=== PATIENT | male | born 1975 | race Caucasian/White ===

== ENCOUNTER 2019-03-11 18:58 | Emergency (ER) | payer SELFPAY ==
[~2019-03-11] VITALS: Ht 154.9 cm; Wt 60.0 kg
[2019-03-11] MEDS ORDERED: AMOX TR/POT CLAV 875 MG/125 MG TABLET PO ONE (21:45)
[2019-03-11] MEDS ORDERED: MAALOX/LIDOCAINE/NYSTATIN SUSP 5 ML ORAL.SYG PO ONE (21:45)
[2019-03-11 21:51] VITALS: BP 119/76
== END 2019-03-11 22:09 | disposition home or self-care (01) ==
LOC: EMS 18:59
DX: A69.0 Necrotizing ulcerative stomatitis (principal); F17.210 Nicotine dependence, cigarettes, uncomplicated

== ENCOUNTER 2022-06-09 00:23 | Inpatient (IN) | payer OTHER ==
[~2022-06-09] VITALS: Ht 165.1 cm; Wt 75.6 kg
[2022-06-09] VITALS (7 sets, daily range): BP systolic 90–126; BP diastolic 60–88
[2022-06-09] MEDS ORDERED: ATORVASTATIN CALCIUM 40 MG TABLET PO ONE (00:30)
[2022-06-09] MEDS ORDERED: ASPIRIN 325 MG TABLET PO ONE (00:30)
[2022-06-09] MEDS ORDERED: HEPARIN SODIUM,PORCINE 5,000 UNITS/ML VIAL IVP ONE ×2 (00:30→02:30)
[2022-06-09] MEDS ORDERED: NITROGLYCERIN 0.3 MG SUBLINGUAL TABLET #100 SL ONE (00:45)
[2022-06-09 00:46] LABS: ANION GAP 8 mmol/L (8-16); CALCIUM, TOTAL 8.4 mg/dL (8.8-10.5); CARBON DIOXIDE 27 mmol/L (22-29); CHLORIDE 106 mmol/L (98-107); CREATININE 1.05 mg/dL (0.60-1.30); GLUCOSE,RANDOM 124 mg/dL (70-110); SODIUM SERUM 141 mmol/L (136-145); UREA NITROGEN, BLOOD 13 mg/dL (7-18)
[2022-06-09 00:52] LABS: GLOMERULAR FILTR. RATE CALC > 60 mL/min (>60)
[2022-06-09 00:55] LABS: BASOPHILS % (AUTO) 0.3 % (0.0-2.0); EOSINOPHILS % (AUTO) 1.9 % (1.0-6.0); HEMATOCRIT 43.7 % (41-53); HEMOGLOBIN 14.6 g/dL (13.5-17.5); LYMPHOCYTES # (AUTO) 6.9 K/uL (1.0-4.8); LYMPHOCYTES % (AUTO) 58.9 % (22.0-44.0); MEAN CORPUSCULAR HEMOGLOBIN 28.6 pg (26.0-34.0); MEAN CORPUSCULAR HGB CONC 33.4 G/dL (31.0-37.0); MEAN CORPUSCULAR VOLUME 86 fL (80-100); MONOCYTES % (AUTO) 8.5 % (2.0-9.0); NEUTROPHILS # (AUTO) 3.6 K/uL (1.8-7.7); NEUTROPHILS % (AUTO) 30.4 % (40.0-70.0); PLATELET COUNT (AUTO) 258 K/uL (150-450); RED CELL DISTRIBUTION WIDTH 13.9 % (11.5-14.5)
[2022-06-09 00:58] LABS: COVID AG,FIA SOURCE NASAL SWAB
[2022-06-09 00:59] LABS: ALANINE AMINOTRANSFERASE 32 U/L (12-78); ALBUMIN 3.9 g/dL (3.4-5.0); ALKALINE PHOSPHATASE 75 U/L (46-116); ASPARTATE AMINOTRANSFERASE 19 U/L (15-37); BILIRUBIN,TOTAL 0.2 mg/dL (0.1-1.0); CREATINE KINASE, TOTAL ONLY 136 U/L (39-308); TOTAL PROTEIN, SERUM 6.8 g/dL (6.4-8.2)
[2022-06-09 01:00] LABS: PROTHROMBIN TIME 10.4 SEC (9.4-11.6)
[2022-06-09] MEDS ORDERED: HEPARIN SODIUM 1000 UNITS/NS 1,000 ML ONE (01:01)
[2022-06-09] MEDS ORDERED: IOHEXOL 350 MG/ML 100 ML VIAL ONE (01:01)
[2022-06-09] MEDS ORDERED: SODIUM BICARBONATE 50 MEQ/50 ML VIAL ONE (01:01)
[2022-06-09] MEDS ORDERED: LIDOCAINE/PF 1% 30 ML VIAL ONE (01:01)
[2022-06-09 01:17] LABS: B-TYPE NATRIURETIC PEPTIDE < 5 pg/mL (0-100)
[2022-06-09] MEDS ORDERED: NITROGLYCERIN 50 MG/D5% WATER 250 ML ONE (01:24)
[2022-06-09] MEDS ORDERED: VERAPAMIL HCL 2.5 MG/ML 2 ML VIAL ONE (01:24)
[2022-06-09] MEDS ORDERED: FentaNYL CITRATE PF 100 MCG/2 ML VIAL ONE (01:24)
[2022-06-09] MEDS ORDERED: MIDAZOLAM HCL 2 MG/2 ML VIAL ONE (01:25)
[2022-06-09] MEDS ORDERED: LIDOCAINE 1% 30 ML/SOD BICARB 8.4% 4 ML SQ ONE (01:45)
[2022-06-09] MEDS ORDERED: HEPARIN SODIUM,PORCINE 1,000 UNITS/ML 10 ML VIAL IARTER ONE (01:45)
[2022-06-09] MEDS ORDERED: NITROGLYCERIN/D5W 50 MG/250 ML IV BOTTLE IARTER ONE (01:45)
[2022-06-09] MEDS ORDERED: FentaNYL CITRATE PF 100 MCG/2 ML VIAL IVP ONE ×4 (01:45→02:30)
[2022-06-09] MEDS ORDERED: MIDAZOLAM HCL 2 MG/2 ML VIAL IVP ONE ×4 (01:45→02:30)
[2022-06-09] MEDS ORDERED: VERAPAMIL HCL 2.5 MG/ML 2 ML VIAL IARTER ONE (01:45)
[2022-06-09] MEDS ORDERED: HEPARIN SODIUM 1000 UNITS/NS 1,000 ML IARTER ONE (01:45)
[2022-06-09] MEDS ORDERED: PHENYLEPHRINE 200 MG/D5%-WATER 0 ML IV ONE (01:53)
[2022-06-09] MEDS ORDERED: ATROPINE SULFATE 0.1 MG/ML 10 ML SYRINGE IVP ONE (01:57)
[2022-06-09] MEDS ORDERED: MORPHINE SULFATE 2 MG/ML SYRINGE ONE (02:32)
[2022-06-09] MEDS ORDERED: MORPHINE SULFATE 2 MG/ML SYRINGE IVP ONE (02:45)
[2022-06-09] MEDS ORDERED: EPTIFIBATIDE 2 MG/ML 10 ML VIAL IVP ONE ×2 (02:49→03:00)
[2022-06-09] MEDS: NOREPINEPHRINE 8 MG/D5%-WATER 250 ML IV PRN (03:00)
[2022-06-09] MEDS ORDERED: EPTIFIBATIDE 75 MG/ISO-OSM 100 ML IV ONE (03:04)
[2022-06-09] MEDS ORDERED: TICAGRELOR 90 MG TABLET PO ONE (03:15)
[2022-06-09] MEDS ORDERED: POTASSIUM CHLORIDE 20 MEQ ER TABLET PO PRN (03:45)
[2022-06-09] MEDS ORDERED: MORPHINE SULFATE 2 MG/ML SYRINGE IVP PRN ×3 (03:45→16:30)
[2022-06-09] MEDS ORDERED: POTASSIUM CHL 10 MEQ/WATER 50 ML IV PRN (03:45)
[2022-06-09] MEDS ORDERED: HYDROCODONE/ACETAMINOPHEN 5-325 MG TABLET PO PRN ×2 (03:45→07:45)
[2022-06-09] MEDS ORDERED: ACETAMINOPHEN 325 MG TABLET PO PRN ×2 (03:45→07:45)
[2022-06-09 07:10] LABS: BASOPHILS % (AUTO) 0.1 % (0.0-2.0); EOSINOPHILS % (AUTO) 0 % (1.0-6.0); HEMATOCRIT 43.5 % (41-53); HEMOGLOBIN 14.4 g/dL (13.5-17.5); LYMPHOCYTES # (AUTO) 1.3 K/uL (1.0-4.8); LYMPHOCYTES % (AUTO) 10.3 % (22.0-44.0); MEAN CORPUSCULAR HEMOGLOBIN 28.4 pg (26.0-34.0); MEAN CORPUSCULAR HGB CONC 33.2 G/dL (31.0-37.0); MEAN CORPUSCULAR VOLUME 85 fL (80-100); MONOCYTES # (AUTO) 0.6 K/uL (0.1-1.0); MONOCYTES % (AUTO) 4.6 % (2.0-9.0); NEUTROPHILS # (AUTO) 11.1 K/uL (1.8-7.7); PLATELET COUNT (AUTO) 242 K/uL (150-450); RED BLOOD CELL COUNT(AUTO) 5.09 MIL/uL (4.50-5.90); RED CELL DISTRIBUTION WIDTH 13.6 % (11.5-14.5)
[2022-06-09] MEDS ORDERED: ZOLPIDEM TARTRATE 5 MG TABLET PO PRN (07:45)
[2022-06-09] MEDS ORDERED: MAGNESIUM HYDROXIDE SUSPENSION 30 ML UDCUP PO PRN (07:45)
[2022-06-09] MEDS ORDERED: BISACODYL 10 MG RECTAL RECTAL SUPPOSITORY PR PRN (07:45)
[2022-06-09] MEDS ORDERED: ONDANSETRON HCL 4 MG/2 ML VIAL IVP PRN (07:45)
[2022-06-09] MEDS ORDERED: MAGNESIUM SULFATE 2 GM/WATER 50 ML IV PRN (08:15)
[2022-06-09] MEDS ORDERED: MAGNESIUM SULFATE 4 GM/WATER 100 ML IV PRN (08:15)
[2022-06-09] MEDS: PANTOPRAZOLE SODIUM 40 MG DR TABLET PO SCH (08:24)
[2022-06-09] MEDS: ATORVASTATIN CALCIUM 40 MG TABLET PO SCH (08:24)
[2022-06-09] MEDS: DOCUSATE SODIUM 100 MG CAPSULE PO SCH ×2 (08:25→19:57)
[2022-06-09] MEDS: TICAGRELOR 90 MG TABLET PO SCH ×2 (08:25→19:56)
[2022-06-09] MEDS: ASPIRIN 81 MG DR TABLET PO SCH (08:25)
[2022-06-09] MEDS: EPTIFIBATIDE 75 MG/ISO-OSM 100 ML IV PRN ×2 (09:32→18:27)
[2022-06-09] MEDS ORDERED: NITROGLYCERIN 0.4 MG SUBLINGUAL TABLET #25 SL ONE (16:30)
[2022-06-09] MEDS: MAGNESIUM OXIDE 400 MG TABLET PO PRN (18:41)
[2022-06-10] VITALS (7 sets, daily range): BP systolic 84–106; BP diastolic 57–78
[2022-06-10 01:12] LABS: APPEARANCE,URINE CLEAR (CLEAR); BILIRUBIN,URINE NEGATIVE (NEGATIVE); GLUCOSE, URINE (UA) NEGATIVE (NEGATIVE); KETONES,URINE NEGATIVE (NEGATIVE); LEUKOCYTE ESTERASE ,URINE NEGATIVE (NEGATIVE); NITRATE,URINE NEGATIVE (NEGATIVE); OCCULT BLOOD,URINE NEGATIVE (NEGATIVE); PROTEIN,URINE NEGATIVE (NEGATIVE); SPECIFIC GRAVITIY, URINE 1.007 (1.003-1.030); UROBILINOGEN,URINE <=1.0 mg/dL (<=1.0)
[2022-06-10 05:48] LABS: BASOPHILS % (AUTO) 0.1 % (0.0-2.0); EOSINOPHILS % (AUTO) 0.5 % (1.0-6.0); HEMOGLOBIN 14.9 g/dL (13.5-17.5); LYMPHOCYTES # (AUTO) 2.5 K/uL (1.0-4.8); LYMPHOCYTES % (AUTO) 22.8 % (22.0-44.0); MEAN CORPUSCULAR HEMOGLOBIN 28.3 pg (26.0-34.0); MEAN CORPUSCULAR HGB CONC 33.1 G/dL (31.0-37.0); MEAN CORPUSCULAR VOLUME 85 fL (80-100); MONOCYTES % (AUTO) 9.3 % (2.0-9.0); NEUTROPHILS # (AUTO) 7.5 K/uL (1.8-7.7); NEUTROPHILS % (AUTO) 67.3 % (40.0-70.0); PLATELET COUNT (AUTO) 202 K/uL (150-450); RED BLOOD CELL COUNT(AUTO) 5.26 MIL/uL (4.50-5.90); RED CELL DISTRIBUTION WIDTH 14.2 % (11.5-14.5)
[2022-06-10 05:54] LABS: HEMOGLOBIN A1C 5.7 % (3.8-5.6)
[2022-06-10 05:55] LABS: ANION GAP 12 mmol/L (8-16); CALCIUM, TOTAL 8.9 mg/dL (8.8-10.5); CARBON DIOXIDE 24 mmol/L (22-29); CHLORIDE 104 mmol/L (98-107); CHOL/HDL RATIO 5.1 (4.2-7.3); CHOLESTEROL 193 mg/dL (131-200); CREATININE 0.88 mg/dL (0.60-1.30); GLUCOSE,RANDOM 108 mg/dL (70-110); HDL CHOLESTEROL 38 mg/dL (40-60); LDL CHOL (CALC.) 137 mg/dL (0-130); POTASSIUM 4.1 mmol/L (3.5-5.1); SODIUM SERUM 140 mmol/L (136-145); TRIGLYCERIDES 89 mg/dL (15-150); UREA NITROGEN, BLOOD 11 mg/dL (7-18)
[2022-06-10 05:56] LABS: GLOMERULAR FILTR. RATE CALC > 60 mL/min (>60)
[2022-06-10] MEDS: MAGNESIUM OXIDE 400 MG TABLET PO PRN (06:01)
[2022-06-10] MEDS: DOCUSATE SODIUM 100 MG CAPSULE PO SCH ×3 (08:50→20:36)
[2022-06-10] MEDS: ASPIRIN 81 MG DR TABLET PO SCH (08:52)
[2022-06-10] MEDS: TICAGRELOR 90 MG TABLET PO SCH ×2 (08:52→20:36)
[2022-06-10] MEDS: PANTOPRAZOLE SODIUM 40 MG DR TABLET PO SCH (09:00)
[2022-06-10] MEDS: ATORVASTATIN CALCIUM 40 MG TABLET PO SCH (09:00)
[2022-06-10] MEDS ORDERED: IOHEXOL 350 MG/ML 100 ML VIAL ONE (11:22)
[2022-06-10] MEDS ORDERED: LIDOCAINE/PF 1% 30 ML VIAL ONE (11:22)
[2022-06-10] MEDS ORDERED: HEPARIN SODIUM 1000 UNITS/NS 1,000 ML ONE (11:22)
[2022-06-10] MEDS ORDERED: VERAPAMIL HCL 2.5 MG/ML 2 ML VIAL ONE (11:22)
[2022-06-10] MEDS ORDERED: SODIUM BICARBONATE 50 MEQ/50 ML VIAL ONE (11:22)
[2022-06-10] MEDS ORDERED: NITROGLYCERIN 50 MG/D5% WATER 250 ML ONE (11:27)
[2022-06-10] MEDS ORDERED: PHENYLEPHRINE 200 MG/D5%-WATER 0 ML IV ONE (11:44)
[2022-06-10] MEDS ORDERED: FentaNYL CITRATE PF 100 MCG/2 ML VIAL ONE (11:47)
[2022-06-10] MEDS ORDERED: MIDAZOLAM HCL 2 MG/2 ML VIAL ONE (11:47)
[2022-06-10] MEDS ORDERED: HEPARIN SODIUM,PORCINE 1,000 UNITS/ML 10 ML VIAL IARTER ONE (12:00)
[2022-06-10] MEDS ORDERED: NITROGLYCERIN/D5W 50 MG/250 ML IV BOTTLE IARTER ONE (12:00)
[2022-06-10] MEDS ORDERED: SODIUM CHLORIDE 0.9% 500 ML IV ONE (12:00)
[2022-06-10] MEDS ORDERED: HEPARIN SODIUM 1000 UNITS/NS 1,000 ML IARTER ONE (12:00)
[2022-06-10] MEDS ORDERED: IOHEXOL 350 MG/ML 100 ML VIAL IARTER ONE (12:00)
[2022-06-10] MEDS ORDERED: LIDOCAINE 1% 30 ML/SOD BICARB 8.4% 4 ML SQ ONE (12:00)
[2022-06-10] MEDS ORDERED: NOREPINEPHRINE 8 MG/D5%-WATER 250 ML IV PRN (12:15)
[2022-06-10] MEDS: NOREPINEPHRINE 8 MG/D5%-WATER 250 ML IV PRN (12:20)
[2022-06-10] MEDS ORDERED: MIDAZOLAM HCL 2 MG/2 ML VIAL IVP ONE (12:30)
[2022-06-10] MEDS ORDERED: FentaNYL CITRATE PF 100 MCG/2 ML VIAL IVP ONE (12:30)
[2022-06-11] VITALS (9 sets, daily range): BP systolic 86–118; BP diastolic 54–77
[2022-06-11 05:43] LABS: BASOPHILS % (AUTO) 0.3 % (0.0-2.0); EOSINOPHILS % (AUTO) 0.3 % (1.0-6.0); HEMATOCRIT 46.9 % (41-53); HEMOGLOBIN 15.9 g/dL (13.5-17.5); LYMPHOCYTES # (AUTO) 2.7 K/uL (1.0-4.8); MEAN CORPUSCULAR HEMOGLOBIN 28.8 pg (26.0-34.0); MEAN CORPUSCULAR HGB CONC 33.8 G/dL (31.0-37.0); MEAN CORPUSCULAR VOLUME 85 fL (80-100); MONOCYTES # (AUTO) 1.1 K/uL (0.1-1.0); MONOCYTES % (AUTO) 9.9 % (2.0-9.0); NEUTROPHILS # (AUTO) 7.1 K/uL (1.8-7.7); NEUTROPHILS % (AUTO) 64.5 % (40.0-70.0); PLATELET COUNT (AUTO) 197 K/uL (150-450); RED BLOOD CELL COUNT(AUTO) 5.51 MIL/uL (4.50-5.90); RED CELL DISTRIBUTION WIDTH 13.9 % (11.5-14.5)
[2022-06-11 06:06] LABS: ANION GAP 13 mmol/L (8-16); CALCIUM, TOTAL 8.8 mg/dL (8.8-10.5); CARBON DIOXIDE 23 mmol/L (22-29); CHLORIDE 101 mmol/L (98-107); CREATININE 1.04 mg/dL (0.60-1.30); GLUCOSE,RANDOM 103 mg/dL (70-110); POTASSIUM 4.1 mmol/L (3.5-5.1); SODIUM SERUM 137 mmol/L (136-145); UREA NITROGEN, BLOOD 16 mg/dL (7-18)
[2022-06-11 06:09] LABS: GLOMERULAR FILTR. RATE CALC > 60 mL/min (>60)
[2022-06-11] MEDS ORDERED: HEPARIN SODIUM 1000 UNITS/NS 1,000 ML ONE (07:09)
[2022-06-11] MEDS ORDERED: SODIUM BICARBONATE 50 MEQ/50 ML VIAL ONE (07:09)
[2022-06-11] MEDS ORDERED: IOHEXOL 350 MG/ML 100 ML VIAL ONE (07:09)
[2022-06-11] MEDS ORDERED: LIDOCAINE/PF 1% 30 ML VIAL ONE (07:09)
[2022-06-11] MEDS ORDERED: FentaNYL CITRATE PF 100 MCG/2 ML VIAL ONE (08:15)
[2022-06-11] MEDS ORDERED: MIDAZOLAM HCL 2 MG/2 ML VIAL ONE (08:16)
[2022-06-11] MEDS ORDERED: MIDAZOLAM HCL 2 MG/2 ML VIAL IVP ONE (08:30)
[2022-06-11] MEDS ORDERED: HEPARIN SODIUM 1000 UNITS/NS 1,000 ML IARTER ONE (08:30)
[2022-06-11] MEDS ORDERED: IOHEXOL 350 MG/ML 100 ML VIAL IARTER ONE ×2 (08:30→09:00)
[2022-06-11] MEDS ORDERED: LIDOCAINE 1% 30 ML/SOD BICARB 8.4% 4 ML SQ ONE (08:30)
[2022-06-11] MEDS ORDERED: FentaNYL CITRATE PF 100 MCG/2 ML VIAL IVP ONE (08:30)
[2022-06-11] MEDS ORDERED: HEPARIN SODIUM,PORCINE 1,000 UNITS/ML 10 ML VIAL ONE (08:53)
[2022-06-11] MEDS ORDERED: TICAGRELOR 90 MG TABLET ONE (08:54)
[2022-06-11] MEDS: ASPIRIN 81 MG DR TABLET PO SCH (09:00)
[2022-06-11] MEDS: DOCUSATE SODIUM 100 MG CAPSULE PO SCH ×2 (09:00→21:00)
[2022-06-11] MEDS: PANTOPRAZOLE SODIUM 40 MG DR TABLET PO SCH (09:00)
[2022-06-11] MEDS: METOPROLOL SUCCINATE 25 MG ER TABLET PO SCH (09:00)
[2022-06-11] MEDS: TICAGRELOR 90 MG TABLET PO SCH ×2 (09:09→21:46)
[2022-06-11] MEDS ORDERED: ASPIRIN 81 MG CHEWABLE TABLET ONE (09:14)
[2022-06-11] MEDS ORDERED: HEPARIN SODIUM,PORCINE 5,000 UNITS/ML VIAL IVP ONE ×2 (09:15)
[2022-06-11] MEDS ORDERED: ATORVASTATIN CALCIUM 40 MG TABLET PO SCH (21:00)
[2022-06-12 00:41] VITALS: BP 88/52
[2022-06-12 03:59] VITALS: BP 84/60
[2022-06-12 06:06] LABS: BASOPHILS % (AUTO) 0.2 % (0.0-2.0); EOSINOPHILS % (AUTO) 0.6 % (1.0-6.0); HEMATOCRIT 43.2 % (41-53); HEMOGLOBIN 14.7 g/dL (13.5-17.5); LYMPHOCYTES # (AUTO) 1.9 K/uL (1.0-4.8); LYMPHOCYTES % (AUTO) 19.4 % (22.0-44.0); MEAN CORPUSCULAR HEMOGLOBIN 28.9 pg (26.0-34.0); MEAN CORPUSCULAR HGB CONC 34.1 G/dL (31.0-37.0); MEAN CORPUSCULAR VOLUME 85 fL (80-100); MONOCYTES # (AUTO) 0.9 K/uL (0.1-1.0); MONOCYTES % (AUTO) 9.1 % (2.0-9.0); NEUTROPHILS % (AUTO) 70.7 % (40.0-70.0); PLATELET COUNT (AUTO) 188 K/uL (150-450); RED BLOOD CELL COUNT(AUTO) 5.09 MIL/uL (4.50-5.90); RED CELL DISTRIBUTION WIDTH 13.3 % (11.5-14.5)
[2022-06-12 06:31] LABS: ANION GAP 9 mmol/L (8-16); CALCIUM, TOTAL 8.5 mg/dL (8.8-10.5); CARBON DIOXIDE 23 mmol/L (22-29); CHLORIDE 101 mmol/L (98-107); CREATININE 1.01 mg/dL (0.60-1.30); GLUCOSE,RANDOM 102 mg/dL (70-110); POTASSIUM 3.9 mmol/L (3.5-5.1); SODIUM SERUM 133 mmol/L (136-145); UREA NITROGEN, BLOOD 16 mg/dL (7-18)
[2022-06-12 06:36] LABS: GLOMERULAR FILTR. RATE CALC > 60 mL/min (>60)
[2022-06-12 08:00] VITALS: BP 91/59
[2022-06-12] MEDS: DOCUSATE SODIUM 100 MG CAPSULE PO SCH (09:00)
[2022-06-12] MEDS: METOPROLOL SUCCINATE 25 MG ER TABLET PO SCH (09:00)
[2022-06-12] MEDS: PANTOPRAZOLE SODIUM 40 MG DR TABLET PO SCH (10:44)
[2022-06-12] MEDS: TICAGRELOR 90 MG TABLET PO SCH (10:45)
[2022-06-12] MEDS: ASPIRIN 81 MG DR TABLET PO SCH (10:45)
[2022-06-12 12:00] VITALS: BP_SYST 103; BP_SYST 109; BP_SYST 90; BP_DIAS 61; BP_DIAS 72; BP_DIAS 80
[2022-06-12] MEDS ORDERED: ASPI81TA87 PO (13:29)
[2022-06-12] MEDS ORDERED: ATOR40TA28 PO (13:30)
[2022-06-12] MEDS ORDERED: TICA90TA PO (13:32)
[2022-06-12] MEDS ORDERED: METO25XL PO (13:32)
== END 2022-06-12 15:25 | disposition home or self-care (01) | DRG 246 ==
LOC: EMS 00:24 → ICU 04:00 → 5S 06-11 20:35
PROVIDERS: ADMIT Internal Medicine; ATTEND Internal Medicine
PROC: 027036Z Dilation of Coronary Artery, One Artery with Three Drug-eluting Intraluminal Devices, Percutaneous Approach (ICD-10-PCS; 2022-06-09)
PROC: 4A023N7 Measurement of Cardiac Sampling and Pressure, Left Heart, Percutaneous Approach (ICD-10-PCS; 2022-06-09)
PROC: B2111ZZ Fluoroscopy of Multiple Coronary Arteries using Low Osmolar Contrast (ICD-10-PCS; 2022-06-09)
PROC: 3E033PZ Introduction of Platelet Inhibitor into Peripheral Vein, Percutaneous Approach (ICD-10-PCS; 2022-06-09)
PROC: 027034Z Dilation of Coronary Artery, One Artery with Drug-eluting Intraluminal Device, Percutaneous Approach (ICD-10-PCS; principal; 2022-06-11)
PROC: 4A023N7 Measurement of Cardiac Sampling and Pressure, Left Heart, Percutaneous Approach (ICD-10-PCS; 2022-06-11)
PROC: B2111ZZ Fluoroscopy of Multiple Coronary Arteries using Low Osmolar Contrast (ICD-10-PCS; 2022-06-11)
PROC: B41F1ZZ Fluoroscopy of Right Lower Extremity Arteries using Low Osmolar Contrast (ICD-10-PCS; 2022-06-11)
DX: I21.09 ST elevation (STEMI) myocardial infarction involving other coronary artery of anterior wall (principal); R65.10 Systemic inflammatory response syndrome (SIRS) of non-infectious origin without acute organ dysfunction; E87.6 Hypokalemia; E83.42 Hypomagnesemia; R73.9 Hyperglycemia, unspecified; Z82.49 Family history of ischemic heart disease and other diseases of the circulatory system; Z87.891 Personal history of nicotine dependence
CPT/HCPCS: 71045; 80048; 80053; 80061; 81003; 82550; 83036; 83735; 83880; 84132; 84484; 85025; 85610; 85730; 86850; 86900; 86901; 87081; 92920; 92928; 93005; 93306; 99285; 99291; G0378; J0461; J1327; J1644; J2250; J2270; J2370; J3010; J3490; Q9967; 36415-L1; 36415-TC; Z7610